=== PATIENT | male | born 1975 | race Caucasian/White ===

== ENCOUNTER 2024-01-22 17:10 | Inpatient (IN) | payer OTHER, SELFPAY ==
[2024-01-22 14:35] VITALS: BP 129/91
--- NOTE | 2024-01-22 15:08 | ED.GENMED ---
History of Present Illness
General
Chief Complaint: Abdominal Pain
Source: patient
Exam Limitations: none
Time Seen by Provider: 01/22/24 14:49
History of Present Illness
History of Present Illness:
48-year-old male who presents with left lower quad abdominal pain began 2 days ago. Patient has history of diverticulitis. [place] He starts to have pain when he walks. States he is lost his
appetite a little bit but no vomiting. No melena. No medic easy. Feels just like. Reticulitis flare but worse than last time
Past History
Past History
ED Past Medical History: Asthma and Other (Diverticulitis)
ED Past Surgical History: Tonsilectomy
Phy Exam
Physical Exam
Physical Exam:
CONSTITUTIONAL Patient alert and oriented to person, place and time. Well-appearing. Vital signs reviewed.
HEAD atraumatic, normocephalic.
EYES eyelids normal to inspection, Pupils equally round and reactive to light, Extraocular muscles intact, Conjunctiva normal, Sclera normal.
NECK normal range of motion, Trachea midline, no jugular venous distention.
RESPIRATORY CHEST No respiratory distress noted, Chest expansion equal, Bilateral breath sounds clear.
CARDIOVASCULAR regular rate and rhythm, Heart sounds normal.
ABDOMEN moderate to severe left lower quadrant tenderness, rebound noted, mild distention.
BACK normal inspection, no obvious deformities
UPPER EXTREMITY range of motion normal, Motor strength normal, no cyanosis, no edema.
LOWER EXTREMITY range of motion normal, Motor strength normal, no cyanosis, no edema.
NEURO Speech normal, No focal motor deficits, Mather coma scale 15, Memory normal, Cranial Nerves intact to screening exam.
SKIN skin warm, dry, and normal in color.
PSYCHIATRIC patient oriented to person place and time, Normal affect.
Course
Orders/Labs/Results
Orders:
Orders
01/22/24 14:58
CT Abd/pelvis W Iv Cont Urgent
Comment: DOES NOT NEED TO WAIT FOR LABS
Reason For Exam: LLQ abd pain
0.9% Sodium Chloride 1000 ml [Nss] 1,000 ml IV BOLUS
Ketorolac [Toradol] 30 mg IV NOW STA
01/22/24 15:13
Complete Blood Count/With Diff Urgent
Comprehensive Metabolic Panel Urgent
01/22/24 16:27
Piperacillin/Tazo 3.375 Gram [Zosyn] 3.375 gram in 50 ml IV NOW
01/22/24 16:41
Morphine Sulfate 4 mg IV NOW STA
Ondansetron Injectable [Zofran] 4 mg IV NOW STA
Abnormal Lab Results
01/22/24
15:13
WBC 19.5 H 10^3/uL
(4.8-10.8)
MCH 31.3 H pg
(27.0-31.0)
Abs Immat Gran (auto) 0.1 H 10^3/uL
(0-0.05)
Absolute Neuts (auto) 16.1 H 10^3/uL
(1.4-6.5)
Absolute Monos (auto) 1.1 H 10^3/uL
(0.1-0.6)
Neutrophils % 82.5 H %
(42.2-75.2)
Lymphocytes % 9.5 L %
(20.5-51.1)
Glucose 120 H mg/dl
(70-99)
Total Bilirubin 3.1 H mg/dl
(0.2-1.3)
01/22/24 15:13
01/22/24 15:13
Vital Signs
Initial and Last Documented VS:
Initial Vital Signs
Temp Pulse Resp BP Pulse Ox
98.8 F 118 18 129/91 97
01/22/24 14:35 01/22/24 14:35 01/22/24 14:35 01/22/24 14:35 01/22/24 14:35
Last Documented Vital Signs
Temp Pulse Resp BP Pulse Ox
98.8 F 118 18 129/91 97
01/22/24 14:35 01/22/24 14:35 01/22/24 14:35 01/22/24 14:35 01/22/24 14:35
MDM/Problems Addressed
MDM/Problems Addressed:
Acute diverticulitis with microperforation
*Radiology
Radiology exam reviewed: radiology read reviewed
*Pulse Oximetry
Patient hypoxic: no
*Critical Care Note
Total Time (30-74mins, 75-104mins- exclusive of procedures): Not Applicable
Data Reviewed
Review of Other/Old Records Reveals: Radiology Studies
Source: patient
Patient Management
Discussion with other providers: Hospitalist
Escalation/DeEscalation of care consider admission/obs:
48-year-old male presents left lower quad abdominal pain. Noted to have rebound on exam and CT does show diverticulitis with microperforation. White count 19.5k. Treat with IV Zosyn and admit.
ED Attending Note
-
Portions of this chart may have been created with voice recognition software.� Occasional wrong word or��sound alike� substitutions may have occurred due to the inherent limitations of voice recognition software.
Discharge Plan
Departure
Patient Disposition: Admit
Date of Disposition: 01/22/24
Time of Disposition: 16:40
Admit to: Med/Surg
Presentation/result/management discussed w/ accepting MD/DO: Hospitalist
Discharge Problem:
Diverticulitis of sigmoid colon, Intestinal perforation
Prescriptions:
No Action
cetirizine [Zyrtec] 10 mg Tablet
10 mg PO HS
albuterol sulfate 90 mcg/actuation Hfa Aerosol Inhaler
2 puff INHALATION R Q4HPRN PRN (Reason: sob/wheezing)
Referrals:
Antonio Pierre MD [Family Provider] -
Interventions
Interventions:
*Risk Screen - Suicide Last Done: 01/22/24 14:35
*General Assessment Last Done: 01/22/24 14:35
*Neglect/Abuse Screening Last Done: 01/22/24 14:35
*ED COVID-19 Vaccine History Last Done: 01/22/24 14:35
ZO-Zwyaim-Ucpwapxzlw Assessment Last Done: 01/22/24 15:22
Discharge Date and Time
Print Language: MALAY
[2024-01-22] MEDS: TORADOL 30 MG IV (15:10)
[2024-01-22] MEDS: NSS 1000 IV ×2 (15:12→21:06)
[2024-01-22 15:21] LABS: % Basophils 0.3 % (0-2); % Eosinophils 1.4 % (0-6); % Immature Granulocytes 0.5 % (0-0.5); % Lymphocytes 9.5 % (20.5-51.1); % Monocytes 5.8 % (1.7-9.3); % Neutrophils 82.5 % (42.2-75.2); Absolute Basophils 0.1 10^3/uL (0-0.2); Absolute Eosinophils 0.3 10^3/uL (0-0.7); Absolute Immature Granulocytes 0.1 10^3/uL (0-0.05); Absolute Lymphocytes 1.9 10^3/uL (1.2-3.4); Absolute Monocytes 1.1 10^3/uL (0.1-0.6); Absolute Neutrophils 16.1 10^3/uL (1.4-6.5); Hematocrit 43.3 % (39.0-52.0); Hemoglobin 15.5 g/dL (13.0-18.0); Mean Corp Hgb Conc. 35.8 g/dL (33.0-37.0); Mean Corpuscular Hgb 31.3 pg (27.0-31.0); Mean Corpuscular Volume 87.5 fL (80.0-94.0); Mean Platelet Volume 8.9 fL (7.4-10.4); Nucleated Red Blood Cells % 0 % (-); Platelet Count 264 10^3/uL (130-400); Red Blood Cell Count 4.95 10^6/uL (4.70-6.10); Red Cell Dist. Width 11.7 % (11.5-14.5); White Blood Cell Count 19.5 10^3/uL (4.8-10.8)
[2024-01-22 15:43] LABS: ALT (SGPT) 28 U/L (0-50); AST (SGOT) 32 U/L (17-59); Albumin 4.4 g/dl (3.5-5.0); Alkaline Phosphatase 58 U/L (38-126); Blood Urea Nitrogen 13 mg/dl (9-20); Calcium 9.4 mg/dl (8.4-10.2); Carbon Dioxide 24 mmol/L (22-30); Chloride 99 mmol/L (98-107); Glucose 120 mg/dl (70-99); Potassium 4.5 mmol/L (3.5-5.1); Sodium 136 mmol/L (135-145); Total Bilirubin 3.1 mg/dl (0.2-1.3); Total Protein 7.1 g/dl (6.3-8.2); eGFR > 60.00
[2024-01-22] MEDS: ZOSYN 50 IV ×2 (16:52→21:06)
[2024-01-22] MEDS: ZOFRAN 4 MG IV (16:53)
[2024-01-22] MEDS: MORPHINE SULFATE 4 MG IV (16:54)
--- NOTE | 2024-01-22 17:04 | HPS.HSE ---
Family Physician
-
Family Physician: Antonio Pierre
Chief Complaint
-
andominal pain
History of Present Illness
48-year-old male past medical history of asthma, diverticulitis last year presenting with left lower quadrant abdominal pain starting 2 days ago. He has loss of appetite but no vomiting. He did have chills. Denies vomiting or diarrhea.
Drinks alcohol socially. Smoking.
Medical History
Past Medical History
Past Medical History: Reports Other (asthma, diverticulitis last year)
Past Surgical History: Reports Tonsilectomy
Social History
Tobacco: Non-smoker
Alcohol: Occasional
Drug: None
Family History
Family History: Not pertinent
Allergies / Home Medications
Allergies reflects when Allergies were last updated in [facility].
Home Medications with original date entered in [facility]
Allergy/Medication List:
Allergies
Allergy/AdvReac Type Severity Reaction Status Date / Time
No Known Allergies Allergy Verified 01/22/24 14:38
Home Medications
albuterol sulfate 90 mcg/actuation aerosol inhaler 2 puff inhalation R Q4HPRN PRN sob/wheezing 01/22/24
cetirizine 10 mg tablet (Zyrtec) 10 mg PO HS 01/22/24
Review of Systems
-
History Source: Patient
A 12 point ROS was completed and negative except as noted: Yes
Constitutional: Reports No Symptoms
EENT: Reports No Symptoms
Respiratory: Reports No Symptoms
Cardiac: Reports No Symptoms
Abdomen/GI: Reports See HPI
: Reports No Symptoms
Musculoskeletal: Reports No Symptoms
Skin: Reports No Symptoms
Neurological: Reports No Symptoms
Endocrine: Reports No Symptoms
Hematologic/Lymphatic: Reports No Symptoms
Psych: Reports No Symptoms
Physical Exam
Vital Signs
Vital Signs
Temp Pulse Resp BP Pulse Ox
98.8 F 118 18 129/91 97
01/22/24 14:35 01/22/24 14:35 01/22/24 14:35 01/22/24 14:35 01/22/24 14:35
Physical Exam
General: Well Developed, Well Nourished and No Apparent Distress
HEENT: NormoCephalic, Moist mucous membranes and Atraumatic
Respiratory: Clear
Cardiac: S1/S2 and Regular Rhythm; No Murmur or Rub
GI: Soft, Non Distended, Normal Bowel Sounds and Tender (rigid, hard, LLQ tenderness ); No Organomegaly
Rectal: Deferred by Provider
Musculoskeletal: No Clubbing, No Cyanosis and No Edema
Skin: No Rash
Neuro: Nonfocal/grossly intact
Laboratory Results
-
01/22/24 15:13
01/22/24 15:13
Laboratory Results
Total Bilirubin 3.1 mg/dl (0.2-1.3) H 01/22/24 15:13
AST 32 U/L (17-59) 01/22/24 15:13
ALT 28 U/L (0-50) 01/22/24 15:13
Alkaline Phosphatase 58 U/L (38-126) 01/22/24 15:13
Data Reviewed
-
Lab Data: Labs Reviewed by me
Old Records: Reviewed
Impression/Plan
-
IMPRESSION:
PLAN:
# Sepsis (leukocytosis, tachycardia) secondary to acute sigmoid diverticulitis with small microperforation
# History of diverticulitis
-N.p.o.
-IV fluids
-Zosyn
-Zofran, Dilaudid
-Colorectal surgery consult
Asthma
-Continue albuterol
Full code
DVT prophylaxis- heparin
NPO
[2024-01-22 17:24] VITALS: BP 133/91
[2024-01-22 20:09] VITALS: BP 117/86; BMI 31.8
--- NOTE | 2024-01-22 20:40 | PTCARENOTE ---
Pt arrived to room 434-02. Pt ambulated from stretcher to bed. Pt AAOx3, VSS. Pt c/o 12/09 abdominal pain. Pt oriented to room, call stanley placed within reach.
[2024-01-22] MEDS: HEPARIN SC (21:01)
[2024-01-22] MEDS: ZYRTEC PO (21:01)
[2024-01-22] MEDS: MORPHINE SULFATE 2 MG IV (21:07)
[2024-01-22] MEDS: TORADOL 10 MG IV (23:16)
[2024-01-22 23:22] VITALS: BP 123/75
[2024-01-23] MEDS: MORPHINE SULFATE 2 MG IV ×2 (01:31→05:55)
[2024-01-23] MEDS: ZOSYN 50 IV ×4 (03:49→21:44)
[2024-01-23 07:15] VITALS: BP 125/73
[2024-01-23 08:01] LABS: % Basophils 0.2 % (0-2); % Eosinophils 1.2 % (0-6); % Immature Granulocytes 0.4 % (0-0.5); % Lymphocytes 14.1 % (20.5-51.1); % Monocytes 6.7 % (1.7-9.3); % Neutrophils 77.4 % (42.2-75.2); Absolute Eosinophils 0.2 10^3/uL (0-0.7); Absolute Immature Granulocytes 0.1 10^3/uL (0-0.05); Absolute Lymphocytes 2.3 10^3/uL (1.2-3.4); Absolute Monocytes 1.1 10^3/uL (0.1-0.6); Absolute Neutrophils 12.6 10^3/uL (1.4-6.5); Hematocrit 37.4 % (39.0-52.0); Hemoglobin 13.5 g/dL (13.0-18.0); Mean Corp Hgb Conc. 36.1 g/dL (33.0-37.0); Mean Corpuscular Hgb 31.5 pg (27.0-31.0); Mean Corpuscular Volume 87.2 fL (80.0-94.0); Mean Platelet Volume 9.3 fL (7.4-10.4); Nucleated Red Blood Cells % 0 % (-); Platelet Count 225 10^3/uL (130-400); Red Blood Cell Count 4.29 10^6/uL (4.70-6.10); Red Cell Dist. Width 11.8 % (11.5-14.5); White Blood Cell Count 16.3 10^3/uL (4.8-10.8)
[2024-01-23] MEDS: TORADOL 10 MG IV (08:16)
[2024-01-23] MEDS: HEPARIN SC ×2 (08:16→19:29)
[2024-01-23 09:01] LABS: ALT (SGPT) 22 U/L (0-50); AST (SGOT) 19 U/L (17-59); Albumin 3.6 g/dl (3.5-5.0); Alkaline Phosphatase 55 U/L (38-126); Blood Urea Nitrogen 12 mg/dl (9-20); Calcium 8.4 mg/dl (8.4-10.2); Carbon Dioxide 20 mmol/L (22-30); Chloride 101 mmol/L (98-107); Estimated Creatinine Clearance 94 ml/min; Glucose 116 mg/dl (70-99); Sodium 136 mmol/L (135-145); Total Bilirubin 5.2 mg/dl (0.2-1.3); Total Protein 5.9 g/dl (6.3-8.2); eGFR > 60.00
[2024-01-23] MEDS: NSS 1000 IV ×2 (09:23→16:37)
[2024-01-23] MEDS: DILAUDID 0.25 MG IV ×3 (09:57→21:46)
--- NOTE | 2024-01-23 12:18 | CON.CRS ---
Consultation
-
Date/Time Consultation Requested: 01/22/2024 23:12
Date/Time Consultation Performed: 01/23/2024 09:30
Requesting Provider: Desirae Cerna MD
Performing Provider: Jean Weiss MD
Reason for Consultation: diverticulitis
Medical History
-
Chief Complaint: abdominal pain
History of Present Illness:
48-year-old male presents to the emergency department yesterday due to left lower quadrant pain that started 3 days ago. The patient states that it happened out of nowhere [place] He had 1 brief episode of nausea
associated with this. His bowel movements have been regular typically but since this started he has been constipated. He was in quite a bit of pain last night. The patient has had 2 prior attacks of diverticulitis 1 on 12/22/2019 which showed
uncomplicated sigmoid diverticulitis. The second attack was 09/03/2022 which showed bilateral acute sigmoid diverticulitis with no abscess. CT of the abdomen and pelvis performed yesterday shows acute sigmoid diverticulitis with suspicion for small
microperforation. No free air elsewhere in the abdomen. No pericolonic abscess. On arrival to the ER his WBC was 19.5 and is 16.3 today. He remains afebrile. His last colonoscopy was in [address] Romano which showed sigmoid diverticulosis
and 1 polyp in the sigmoid colon. The patient states he has never had abdominal surgery in the past. We have been consulted for further surgical opinion.
Past Medical History
Past Medical History: Asthma and Other (diverticulitis - 2 prior attacks)
Past Surgical History: Tonsilectomy
Social History
Tobacco: Non-Smoker
Alcohol: Occasional
Drug: None
Family History
Family History: Reviewed & Not Pertinent
Allergies / Home Medications
Allergy/AdvReac Type Severity Reaction Status Date / Time
No Known Allergies Allergy Verified 01/22/24 14:38
�Medication �Instructions �Recorded �Confirmed �Type
albuterol sulfate 90 mcg/actuation 2 puff inhalation R Q4HPRN PRN 01/22/24 01/22/24 History
aerosol inhaler sob/wheezing
cetirizine 10 mg tablet (Zyrtec) 10 mg PO HS 01/22/24 01/22/24 History
Review of Systems
-
History Source: Patient
All other systems: Negative unless noted
Abdomen/GI: Abdominal Pain and Nausea
A 10 point review of systems was completed, and was negative except as per HPI.
Physical Exam
Vital Signs
Temp 99.1 F 01/23/24 07:15
Pulse 92 01/23/24 07:15
Resp Rate 18 01/23/24 07:15
Blood pressure 125/73 01/23/24 07:15
SaO2 94 01/23/24 07:15
01/22/24 01/23/24 01/24/24
06:59 06:59 06:59
Actual Weight 94.914 kg
Body Mass Index (BMI) 31.8
Lab Results / Allergies
01/23/24 07:22
01/23/24 07:22
WBC 16.3 10^3/uL (4.8-10.8) H 01/23/24 07:22
Hgb 13.5 g/dL (13.0-18.0) 01/23/24 07:22
Hct 37.4 % (39.0-52.0) L 01/23/24 07:22
Plt Count 225 10^3/uL (130-400) 01/23/24 07:22
Abs Immat Gran (auto) 0.1 10^3/uL (0-0.05) H 01/23/24 07:22
Neutrophils % 77.4 % (42.2-75.2) H 01/23/24 07:22
Allergy/AdvReac Type Severity Reaction Status Date / Time
No Known Allergies Allergy Verified 01/22/24 14:38
Physical Exam
General: Well Developed, Well Nourished and No Apparent Distress
GI: Soft, Tender (LLQ -mild) and Distended (mild)
Skin: Warm and Dry
Neuro: AO x 3
Data Reviewed
-
CT Scan: Image Personally Visualized and interpreted, Report Reviewed by me and Discussed with Patient
Labs: Labs Reviewed by me, Discussed with Physician and Discussed with Patient
Old Records: Reviewed
Assessment / Plan
-
Assessment: 48-year-old male with 2 prior attacks of sigmoid diverticulitis presents to [place] ER with several days worth of abdominal pain and 1 instance of nausea and found to have uncomplicated sigmoid diverticulitis
Plan:
-No plans for emergent surgery at this time. He would benefit from an elective sigmoidectomy once this episode has passed. He will discuss this further in the office with Dr. Weiss as an outpatient.
-Continue with IV fluids and antibiotics.
-Okay to advance to clear liquids.
-Will follow.
--- NOTE | 2024-01-23 13:20 | W.PN.HOSP.TC ---
Today's Communication/Plan
-
Diet per surgery
IV fluid
Pain control
IV antibiotic
Assessment / Plan
Assessment / Plan
# Sepsis (leukocytosis, tachycardia) secondary to acute sigmoid diverticulitis with small microperforation
# History of diverticulitis
-Diet per surgery.
-IV fluids
-Zosyn
-Continue pain control. Antinausea meds as needed.
-Colorectal surgery consult
-Remains afebrile. WBC improving. Continue to trend CBC.
-Plan for outpatient surgery unless patient condition deteriorates then will require inpatient surgery.
Asthma
-Continue albuterol
Elevated bilirubin
AST ALT normal
Continue to trend for now
Seems chronically elevated
Full code
DVT prophylaxis- heparin
Anticipated Discharge: > 48 hours
Subjective/Interval History
-
Date of Service: January 23, 2024
remains with abd pain
Objective Data
-
Labs:
Laboratory Results
01/23/24
07:22
WBC 16.3 H
Hgb 13.5
Hct 37.4 L
Plt Count 225
Sodium 136
Potassium 4.0
Chloride 101
Carbon Dioxide 20 L
BUN 12
Creatinine 1.1
Glucose 116 H
Calcium 8.4
Total Bilirubin 5.2 H D
AST 19
ALT 22
Alkaline Phosphatase 55
Vital Signs:
Vital Signs
Temp Pulse Resp BP Pulse Ox
99.1 F 92 18 125/73 94
01/23/24 07:15 01/23/24 07:15 01/23/24 07:15 01/23/24 07:15 01/23/24 07:15
I&O
01/22/24 01/23/24 01/24/24
06:59 06:59 06:59
Intake Total 1340 / 1340
Balance 1340 / 1340
Physical Exam
-
General: Well Developed and No Apparent Distress
HEENT: Normocephalic, Atraumatic and Moist Mucous Membranes
Respiratory: Clear to Auscultation
Cardiac: Regular Rhythm and S1/S2; Negative Murmur, Rub or Gallop
GI: Soft, Nontender, Normal Bowel Sounds and Tender; Negative Organomegaly
Rectal: Deferred by Provider
Musculoskeletal: No Clubbing, No Cyanosis and No Edema
Skin: Negative Rash
Neuro: Awake, Alert, Oriented, AO x 3, No Motor Deficits and Nonfocal/Grossly Intact
Psych: Calm
Data Reviewed
-
Total Time Spent with Patient (in minutes): 56
[2024-01-23 15:46] VITALS: BP 108/64
--- NOTE | 2024-01-23 16:26 | CM ---
legal services manager reviewed patient's chart and met with patient and patient lives in an apartment, alone is independent with adl's and ambulation, patient drives, home when stable, no needs.
[facility]acy: [facility]
PCP: Dr. Pierre
Plan; Home when stable, no needs.
[2024-01-23] MEDS: ZYRTEC PO (21:33)
[2024-01-23] MEDS: TYLENOL 650 MG PO (22:37)
[2024-01-23 23:12] VITALS: BP 120/67
[2024-01-24] MEDS: ZOSYN 50 IV ×4 (05:08→21:09)
[2024-01-24] MEDS: NSS 1000 IV ×2 (05:09→16:08)
[2024-01-24] MEDS: MORPHINE SULFATE 2 MG IV ×2 (05:19→21:10)
[2024-01-24 07:10] VITALS: BP 119/83
[2024-01-24 08:18] LABS: % Basophils 0.2 % (0-2); % Eosinophils 1.5 % (0-6); % Immature Granulocytes 0.5 % (0-0.5); % Lymphocytes 14.9 % (20.5-51.1); % Monocytes 6.9 % (1.7-9.3); Absolute Eosinophils 0.2 10^3/uL (0-0.7); Absolute Immature Granulocytes 0.1 10^3/uL (0-0.05); Absolute Lymphocytes 2.1 10^3/uL (1.2-3.4); Absolute Neutrophils 10.8 10^3/uL (1.4-6.5); Hematocrit 35.8 % (39.0-52.0); Mean Corp Hgb Conc. 36.3 g/dL (33.0-37.0); Mean Corpuscular Hgb 31.9 pg (27.0-31.0); Mean Corpuscular Volume 87.7 fL (80.0-94.0); Mean Platelet Volume 9.2 fL (7.4-10.4); Nucleated Red Blood Cells % 0 % (-); Platelet Count 202 10^3/uL (130-400); Red Blood Cell Count 4.08 10^6/uL (4.70-6.10); Red Cell Dist. Width 11.8 % (11.5-14.5); White Blood Cell Count 14.2 10^3/uL (4.8-10.8)
[2024-01-24] MEDS: HEPARIN 5000 UNITS SC ×2 (09:06→21:09)
[2024-01-24 09:18] LABS: ALT (SGPT) 22 U/L (0-50); AST (SGOT) 21 U/L (17-59); Albumin 3.1 g/dl (3.5-5.0); Alkaline Phosphatase 69 U/L (38-126); Blood Urea Nitrogen 8 mg/dl (9-20); Calcium 8.1 mg/dl (8.4-10.2); Carbon Dioxide 24 mmol/L (22-30); Chloride 103 mmol/L (98-107); Estimated Creatinine Clearance 103 ml/min; Glucose 101 mg/dl (70-99); Sodium 140 mmol/L (135-145); Total Bilirubin 4.9 mg/dl (0.2-1.3); Total Protein 5.6 g/dl (6.3-8.2); eGFR > 60.00
--- NOTE | 2024-01-24 10:09 | W.PN.CRS1 ---
Today's Communication / Plan
-
remain on clears
Assessment/Plan
-
Assessment: 48-year-old male with 2 prior attacks of sigmoid diverticulitis presents to [place] ER with several days worth of abdominal pain and 1 instance of nausea and found to have uncomplicated sigmoid diverticulitis
Vitals: tmax 100.3. WBC 14.2 from 16.3.
Plan:
-No plans for emergent surgery at this time. He would benefit from an elective sigmoidectomy once this episode has passed. He will discuss this further in the office with Dr. Weiss as an outpatient.
-Continue with IV fluids and antibiotics.
-Given amount of pain, will keep on clears today.
-Will follow.
Subjective Data
Subjective Data
Date of Service: January 24, 2024
Patient states he has a significant amount of pain this morning. He states it is about the same as yesterday. It is localized to his left side. He has no nausea or vomiting. He is tolerating clears. He has not had any bowel movements since
admission.
Objective Data
-
Vital Signs
Temp Pulse Resp BP Pulse Ox
97.7 F 82 18 119/83 95
01/24/24 07:10 01/24/24 07:10 01/24/24 07:10 01/24/24 07:10 01/24/24 07:10
Intake & Output
01/23/24 01/24/24 01/25/24
06:59 06:59 06:59
Intake Total 1340 / 1340 650 / 650
Balance 1340 / 1340 650 / 650
Intake:
Oral fluids 240 / 240 600 / 600
IV fluids (Total) 1000 / 1000
IV piggybacks 100 / 100 50 / 50
Other:
Number of approximated MODERATE 3 3
amounts of urine
Lab Results
01/24/24 07:41
01/24/24 07:41
Physical Exam
-
General: No Acute Distress and AOx3
Abdomen: Soft, Distended (mild) and Tender (left lower quadrant)
Skin: Warm and Dry
--- NOTE | 2024-01-24 11:33 | W.PN.HOSP.TC ---
Today's Communication/Plan
-
clears
IVF
IV abx
trend abd exam
Assessment / Plan
Assessment / Plan
# Sepsis (leukocytosis, tachycardia) secondary to acute sigmoid diverticulitis with small microperforation
# History of diverticulitis
-Diet per surgery. Plan to continue clears
-IV fluids
-Zosyn
-Continue pain control. Antinausea meds as needed.
-Colorectal surgery consult
-Remains afebrile. WBC improving. Continue to trend CBC.
-Plan for outpatient surgery unless patient condition deteriorates then will require inpatient surgery.
Asthma
-Continue albuterol
Elevated bilirubin
AST ALT normal
Continue to trend for now
Seems chronically elevated
CT scan- gallbladder, bile ducts, pancreas, spleen, bilateral adrenal glands, and kidneys are unremarkable.
Full code
DVT prophylaxis- heparin
Anticipated Discharge: > 48 hours
Subjective/Interval History
-
Date of Service: January 24, 2024
states of persistent pain
passing flatulence
Objective Data
-
Labs:
Laboratory Results
01/24/24
07:41
WBC 14.2 H
Hgb 13.0
Hct 35.8 L
Plt Count 202
Sodium 140
Potassium 4.0
Chloride 103
Carbon Dioxide 24
BUN 8 L
Creatinine 1.0
Glucose 101 H
Calcium 8.1 L
Total Bilirubin 4.9 H
AST 21
ALT 22
Alkaline Phosphatase 69
Vital Signs:
Vital Signs
Temp Pulse Resp BP Pulse Ox
97.7 F 82 18 119/83 95
01/24/24 07:10 01/24/24 07:10 01/24/24 07:10 01/24/24 07:10 01/24/24 07:10
I&O
01/23/24 01/24/24 01/25/24
06:59 06:59 06:59
Intake Total 1340 / 1340 650 / 650
Balance 1340 / 1340 650 / 650
Physical Exam
-
General: Well Developed and No Apparent Distress
HEENT: Normocephalic, Atraumatic and Moist Mucous Membranes
Respiratory: Clear to Auscultation
Cardiac: Regular Rhythm and S1/S2; Negative Murmur, Rub or Gallop
GI: Soft, Nontender, Normal Bowel Sounds and Tender (LLQ ); Negative Organomegaly
Rectal: Deferred by Provider
Musculoskeletal: No Clubbing, No Cyanosis and No Edema
Skin: Negative Rash
Neuro: Awake, Alert, Oriented, AO x 3, No Motor Deficits and Nonfocal/Grossly Intact
Psych: Calm
--- NOTE | 2024-01-24 14:54 | CM ---
Home no needs.
Plan; Home no needs.
[2024-01-24 15:32] VITALS: BP 137/85
[2024-01-24] MEDS: DILAUDID 0.25 MG IV (16:12)
[2024-01-24] MEDS: ZYRTEC PO (22:48)
[2024-01-24 23:50] VITALS: BP 123/61
[2024-01-25] MEDS: DILAUDID 0.25 MG IV (02:15)
[2024-01-25] MEDS: ZOSYN 50 IV ×4 (04:10→21:57)
[2024-01-25] MEDS: NSS 1000 IV ×3 (04:10→15:59)
[2024-01-25 07:24] LABS: % Basophils 0.2 % (0-2); % Eosinophils 2.5 % (0-6); % Immature Granulocytes 0.4 % (0-0.5); % Lymphocytes 21.3 % (20.5-51.1); % Monocytes 6.3 % (1.7-9.3); % Neutrophils 69.3 % (42.2-75.2); Absolute Eosinophils 0.3 10^3/uL (0-0.7); Absolute Lymphocytes 2.4 10^3/uL (1.2-3.4); Absolute Monocytes 0.7 10^3/uL (0.1-0.6); Absolute Neutrophils 7.7 10^3/uL (1.4-6.5); Hematocrit 35.3 % (39.0-52.0); Hemoglobin 12.4 g/dL (13.0-18.0); Mean Corp Hgb Conc. 35.1 g/dL (33.0-37.0); Mean Corpuscular Hgb 31.2 pg (27.0-31.0); Mean Corpuscular Volume 88.9 fL (80.0-94.0); Mean Platelet Volume 9.5 fL (7.4-10.4); Nucleated Red Blood Cells % 0 % (-); Platelet Count 220 10^3/uL (130-400); Red Blood Cell Count 3.97 10^6/uL (4.70-6.10); Red Cell Dist. Width 11.7 % (11.5-14.5); White Blood Cell Count 11.2 10^3/uL (4.8-10.8)
[2024-01-25 07:46] LABS: ALT (SGPT) 20 U/L (0-50); AST (SGOT) 23 U/L (17-59); Albumin 3.1 g/dl (3.5-5.0); Alkaline Phosphatase 66 U/L (38-126); Blood Urea Nitrogen 6 mg/dl (9-20); Calcium 8.2 mg/dl (8.4-10.2); Carbon Dioxide 25 mmol/L (22-30); Chloride 102 mmol/L (98-107); Estimated Creatinine Clearance 94 ml/min; Glucose 95 mg/dl (70-99); Sodium 139 mmol/L (135-145); Total Bilirubin 3.3 mg/dl (0.2-1.3); Total Protein 5.6 g/dl (6.3-8.2); eGFR > 60.00
[2024-01-25 08:05] VITALS: BP 148/97
[2024-01-25] MEDS: HEPARIN SC ×2 (09:00→19:40)
[2024-01-25] MEDS: OMNIPAQUE 100 ML PO (10:07)
[2024-01-25] MEDS: MORPHINE SULFATE 2 MG IV (10:08)
[2024-01-25 10:43] VITALS: BMI 31.8
--- NOTE | 2024-01-25 12:08 | CM ---
Home no needs when stable.
Plan; Home when stable.
--- NOTE | 2024-01-25 12:33 | W.PN.CRS1 ---
Today's Communication / Plan
-
CT abdomen pelvis
Assessment/Plan
-
Assessment: 48-year-old male with 2 prior attacks of sigmoid diverticulitis presents to [place] ER with several days worth of abdominal pain and 1 instance of nausea and found to have uncomplicated sigmoid diverticulitis
Vitals: Afebrile over 24 hours, WBC 11.2
Plan:
-Continue with IV fluids and antibiotics.
-Given amount of pain, will order a CT of the abdomen and pelvis
-Plans to follow once CT performed.
Subjective Data
Subjective Data
Date of Service: January 25, 2024
Patient states his pain is the same if not a little bit worse than yesterday. He had a very rough night and was unable to sleep due to the pain. He denies nausea or vomiting. He has not had any bowel movement since admission. He does have flatus.
Objective Data
-
Vital Signs
Temp Pulse Resp BP Pulse Ox
98.1 F 85 18 148/97 97
01/25/24 08:05 01/25/24 08:05 01/25/24 08:05 01/25/24 08:05 01/25/24 08:05
Intake & Output
01/24/24 01/25/24 01/26/24
06:59 06:59 06:59
Intake Total 650 / 650 1440 / 1440
Balance 650 / 650 1440 / 1440
Intake:
Oral fluids 600 / 600 1440 / 1440
IV piggybacks 50 / 50
Other:
Number of approximated MODERATE 3 3
amounts of urine
Lab Results
01/25/24 06:15
01/25/24 06:15
Physical Exam
-
General: No Acute Distress and AOx3
Abdomen: Soft, Distended (Mild) and Tender (Left lower quadrant-moderate)
Skin: Warm and Dry
--- NOTE | 2024-01-25 12:43 | W.PN.HOSP.TC ---
Today's Communication/Plan
-
IV abx
Restart IVF
CRS recs
repeat CT pending
Assessment / Plan
Assessment / Plan
# Sepsis (leukocytosis, tachycardia) secondary to acute sigmoid diverticulitis with small microperforation
# History of diverticulitis
-Diet per surgery. Plan to continue clears
-IV fluids
-Zosyn
-Continue pain control. Antinausea meds as needed.
-Colorectal surgery consult
-Remains afebrile. WBC improving. Continue to trend CBC.
-with worsening abd pain-Plan for repeat CT abd/pelvis ordered. may need downgrade diet. Start IVF as will receive repeat contrast.
-Plan for outpatient surgery unless patient condition deteriorates then will require inpatient surgery.
Asthma
-Continue albuterol
Elevated bilirubin
AST ALT normal
Continue to trend for now
Seems chronically elevated
CT scan- gallbladder, bile ducts, pancreas, spleen, bilateral adrenal glands, and kidneys are unremarkable.
Full code
DVT prophylaxis- heparin
Anticipated Discharge: > 48 hours
Subjective/Interval History
-
Date of Service: January 25, 2024
states of persistent pain without much improvement
had small bm earlier
Objective Data
-
Labs:
Laboratory Results
01/25/24
06:15
WBC 11.2 H
Hgb 12.4 L
Hct 35.3 L
Plt Count 220
Sodium 139
Potassium 4.0
Chloride 102
Carbon Dioxide 25
BUN 6 L
Creatinine 1.1
Glucose 95
Calcium 8.2 L
Total Bilirubin 3.3 H
AST 23
ALT 20
Alkaline Phosphatase 66
Vital Signs:
Vital Signs
Temp Pulse Resp BP Pulse Ox
98.1 F 85 18 148/97 99
01/25/24 08:05 01/25/24 08:05 01/25/24 08:05 01/25/24 08:05 01/25/24 09:00
I&O
01/24/24 01/25/24 01/26/24
06:59 06:59 06:59
Intake Total 650 / 650 1440 / 1440
Balance 650 / 650 1440 / 1440
Physical Exam
-
General: Well Developed and No Apparent Distress
HEENT: Normocephalic, Atraumatic and Moist Mucous Membranes
Respiratory: Clear to Auscultation
Cardiac: Regular Rhythm and S1/S2; Negative Murmur, Rub or Gallop
GI: Soft, Nontender, Normal Bowel Sounds and Tender (LLQ ); Negative Organomegaly
Rectal: Deferred by Provider
Musculoskeletal: No Clubbing, No Cyanosis and No Edema
Skin: Negative Rash
Neuro: Awake, Alert, Oriented, AO x 3, No Motor Deficits and Nonfocal/Grossly Intact
Psych: Calm
Data Reviewed
-
Total Time Spent with Patient (in minutes): 56
[2024-01-25 15:10] VITALS: BP 142/97
--- NOTE | 2024-01-25 15:19 | W.PN.UPDATE ---
Update Note
Progress Note Update
CT A/P was examined by Dr. Medley. Shows 'Slight interval increase in perisigmoid edema/nonloculated fluid since 01/22/2024. There is no intramural abscess or extraluminal focal fluid collection. Solitary gas locule adjacent to the sigmoid colon is
again seen, unchanged from prior, and suspicious for small focal perforation. There is no overt pneumoperitoneum or new extraluminal gas. No new inflammation.' Dr. Medley spoke with patient. Depending on exam/wbc tomorrow morning, will decide on OR
in the AM. Remain NPO for now. Continue IV antibiotics.
[2024-01-25] MEDS: ZYRTEC PO (21:53)
[2024-01-25 23:27] VITALS: BP 126/76
[2024-01-26] MEDS: NSS 1000 IV ×2 (04:11→16:30)
[2024-01-26] MEDS: ZOSYN 50 IV ×4 (04:11→21:39)
[2024-01-26] MEDS: HEPARIN SC ×2 (07:12→20:09)
[2024-01-26 07:18] LABS: % Basophils 0.5 % (0-2); % Eosinophils 4.5 % (0-6); % Immature Granulocytes 0.4 % (0-0.5); % Lymphocytes 28.4 % (20.5-51.1); % Neutrophils 59.2 % (42.2-75.2); Absolute Eosinophils 0.3 10^3/uL (0-0.7); Absolute Lymphocytes 2.1 10^3/uL (1.2-3.4); Absolute Monocytes 0.5 10^3/uL (0.1-0.6); Absolute Neutrophils 4.3 10^3/uL (1.4-6.5); Hematocrit 34.4 % (39.0-52.0); Hemoglobin 12.3 g/dL (13.0-18.0); Mean Corp Hgb Conc. 35.8 g/dL (33.0-37.0); Mean Corpuscular Hgb 30.5 pg (27.0-31.0); Mean Corpuscular Volume 85.4 fL (80.0-94.0); Mean Platelet Volume 9.2 fL (7.4-10.4); Nucleated Red Blood Cells % 0 % (-); Platelet Count 278 10^3/uL (130-400); Red Blood Cell Count 4.03 10^6/uL (4.70-6.10); Red Cell Dist. Width 11.8 % (11.5-14.5); White Blood Cell Count 7.3 10^3/uL (4.8-10.8)
[2024-01-26 08:16] LABS: ALT (SGPT) 19 U/L (0-50); AST (SGOT) 20 U/L (17-59); Albumin 3.3 g/dl (3.5-5.0); Alkaline Phosphatase 67 U/L (38-126); Blood Urea Nitrogen 4 mg/dl (9-20); Calcium 8.4 mg/dl (8.4-10.2); Carbon Dioxide 27 mmol/L (22-30); Chloride 103 mmol/L (98-107); Estimated Creatinine Clearance 103 ml/min; Glucose 103 mg/dl (70-99); Potassium 3.8 mmol/L (3.5-5.1); Sodium 141 mmol/L (135-145); Total Bilirubin 2.1 mg/dl (0.2-1.3); Total Protein 5.9 g/dl (6.3-8.2); eGFR > 60.00
[2024-01-26 08:21] VITALS: BP 130/84
--- NOTE | 2024-01-26 09:38 | CM ---
Patient seen at bedside. Patient states he is for discharge tomorrow. CM will continue to follow for discharge planning needs.
Plan; home with no needs anticpated
--- NOTE | 2024-01-26 10:15 | W.PN.CRS1 ---
Today's Communication / Plan
-
cancel OR
full liquids
Assessment/Plan
-
Assessment: 48-year-old male with 2 prior attacks of sigmoid diverticulitis presents to [place] ER with several days worth of abdominal pain and 1 instance of nausea and found to have uncomplicated sigmoid diverticulitis
Vitals: Afebrile over 24 hours, WBC 7.3
Plan:
- Continue with IV fluids and antibiotics.
- Given clinical improvement, will cancel OR today
- Advance diet to full liquids
- OOB as tolerated
- Will follow
Subjective Data
Subjective Data
Date of Service: January 26, 2024
Patient states he 'turned a corner' last night. He no longer has nausea or vomiting. He denies pain. He has been walking around the unit. He is hungry. He hasn't had a BM but has had a lot of flatus.
Objective Data
-
Vital Signs
Temp Pulse Resp BP Pulse Ox
97.8 F 72 16 130/84 97
01/26/24 08:21 01/26/24 08:21 01/26/24 08:21 01/26/24 08:21 01/26/24 08:21
Intake & Output
01/25/24 01/26/24 01/27/24
06:59 06:59 06:59
Intake Total 1440 / 1440 480 / 480
Balance 1440 / 1440 480 / 480
Intake:
Oral fluids 1440 / 1440 480 / 480
Other:
Number of approximated MODERATE 3 1
amounts of urine
Lab Results
01/26/24 06:38
01/26/24 06:38
Physical Exam
-
General: No Acute Distress and AOx3
Abdomen: Soft, Non Distended and Tender (mild LLQ)
Wound: Dressing in Place
--- NOTE | 2024-01-26 10:35 | W.PN.HOSP.TC ---
Today's Communication/Plan
-
IV zosyn
diet advance
Assessment / Plan
Assessment / Plan
# Sepsis (leukocytosis, tachycardia) secondary to acute sigmoid diverticulitis with small microperforation
# History of diverticulitis
-Zosyn
-Continue pain control. Antinausea meds as needed.
-Colorectal surgery consult
-Remains afebrile. Leukocytosis resolved.
-Repeat CT abd/pelvis with Slight interval increase in perisigmoid edema/nonloculated fluid since 01/22/2024. There is no intramural abscess or extraluminal focal fluid collection. Solitary gas locule adjacent to the sigmoid colon is again seen,
unchanged from prior, and suspicious for small focal perforation. There is no overt pneumoperitoneum or new extraluminal gas. No new inflammation.
-Plan to start on Fulls and advance further if tolerates.
-Plan for outpatient surgery unless patient condition deteriorates then will require inpatient surgery.
Asthma
-Continue albuterol
Elevated bilirubin
AST ALT normal
Continue to trend for now
Seems chronically elevated
CT scan- gallbladder, bile ducts, pancreas, spleen, bilateral adrenal glands, and kidneys are unremarkable.
Full code
DVT prophylaxis- heparin
Anticipated Discharge: Within 24 hours
Subjective/Interval History
-
Date of Service: January 26, 2024
feeling alot better-improved in abd pain
Objective Data
-
Labs:
Laboratory Results
01/26/24
06:38
WBC 7.3
Hgb 12.3 L
Hct 34.4 L
Plt Count 278 D
Sodium 141
Potassium 3.8
Chloride 103
Carbon Dioxide 27
BUN 4 L
Creatinine 1.0
Glucose 103 H
Calcium 8.4
Total Bilirubin 2.1 H
AST 20
ALT 19
Alkaline Phosphatase 67
Vital Signs:
Vital Signs
Temp Pulse Resp BP Pulse Ox
97.8 F 72 16 130/84 97
01/26/24 08:21 01/26/24 08:21 01/26/24 08:21 01/26/24 08:21 01/26/24 08:21
I&O
01/25/24 01/26/24 01/27/24
06:59 06:59 06:59
Intake Total 1440 / 1440 480 / 480
Balance 1440 / 1440 480 / 480
Physical Exam
-
General: Well Developed and No Apparent Distress
HEENT: Normocephalic, Atraumatic and Moist Mucous Membranes
Respiratory: Clear to Auscultation
Cardiac: Regular Rhythm and S1/S2; Negative Murmur, Rub or Gallop
GI: Soft, Nontender, Normal Bowel Sounds and Tender (LLQ -improved); Negative Organomegaly
Rectal: Deferred by Provider
Musculoskeletal: No Clubbing, No Cyanosis and No Edema
Skin: Negative Rash
Neuro: Awake, Alert, Oriented, AO x 3, No Motor Deficits and Nonfocal/Grossly Intact
Psych: Calm
[2024-01-26 15:45] VITALS: BP 134/95
[2024-01-26] MEDS: TYLENOL 650 MG PO (16:35)
[2024-01-26] MEDS: ZYRTEC 10 MG PO (21:39)
[2024-01-26 23:31] VITALS: BP 117/74
[2024-01-27] MEDS: ZOSYN 50 IV ×2 (03:31→10:34)
[2024-01-27] MEDS: HEPARIN SC (07:10)
[2024-01-27 07:53] LABS: % Basophils 0.5 % (0-2); % Eosinophils 4.2 % (0-6); % Immature Granulocytes 0.7 % (0-0.5); % Neutrophils 56.6 % (42.2-75.2); Absolute Eosinophils 0.3 10^3/uL (0-0.7); Absolute Lymphocytes 1.9 10^3/uL (1.2-3.4); Absolute Monocytes 0.4 10^3/uL (0.1-0.6); Absolute Neutrophils 3.5 10^3/uL (1.4-6.5); Hematocrit 36.8 % (39.0-52.0); Hemoglobin 12.7 g/dL (13.0-18.0); Mean Corp Hgb Conc. 34.5 g/dL (33.0-37.0); Mean Corpuscular Hgb 29.8 pg (27.0-31.0); Mean Corpuscular Volume 86.4 fL (80.0-94.0); Mean Platelet Volume 8.9 fL (7.4-10.4); Nucleated Red Blood Cells % 0 % (-); Platelet Count 286 10^3/uL (130-400); Red Blood Cell Count 4.26 10^6/uL (4.70-6.10); Red Cell Dist. Width 11.9 % (11.5-14.5); White Blood Cell Count 6.1 10^3/uL (4.8-10.8)
[2024-01-27 08:05] VITALS: BP 114/72
[2024-01-27 08:34] LABS: ALT (SGPT) 21 U/L (0-50); AST (SGOT) 24 U/L (17-59); Albumin 3.4 g/dl (3.5-5.0); Alkaline Phosphatase 63 U/L (38-126); Blood Urea Nitrogen 4 mg/dl (9-20); Calcium 8.5 mg/dl (8.4-10.2); Carbon Dioxide 23 mmol/L (22-30); Chloride 103 mmol/L (98-107); Estimated Creatinine Clearance 103 ml/min; Glucose 106 mg/dl (70-99); Potassium 3.9 mmol/L (3.5-5.1); Sodium 141 mmol/L (135-145); Total Bilirubin 1.5 mg/dl (0.2-1.3); eGFR > 60.00
--- NOTE | 2024-01-27 10:00 | W.PN.CRS1 ---
Today's Communication / Plan
-
low residue
Assessment/Plan
-
Assessment: 48-year-old male with 2 prior attacks of sigmoid diverticulitis presents to [facility] with several days worth of abdominal pain and 1 instance of nausea and found to have uncomplicated sigmoid diverticulitis
Vitals: Afebrile over 24 hours, WBC 7.3
Plan:
- Continue with antibiotics.
- No plans for OR, may need a resection as an outpatient once this current flare has resolved. Will discuss as an outpatient with Dr. Weiss.
- Advance diet to low residue
- OOB as tolerated
- Okay for d/c from our standpoint later today if tolerating low residue. Will need course of antibiotics. Follow up with Dr. Weiss in two weeks. Low residue diet as an outpatient.
Subjective Data
Subjective Data
Date of Service: January 27, 2024
Patient states he feels a lot better. He hardly has abdominal pain. He denies nausea or vomiting. He is very hungry.
Objective Data
-
Vital Signs
Temp Pulse Resp BP Pulse Ox
97.6 F 62 18 114/72 96
01/27/24 08:05 01/27/24 08:05 01/27/24 08:05 01/27/24 08:05 01/27/24 08:05
Intake & Output
01/26/24 01/27/24 01/28/24
06:59 06:59 06:59
Intake Total 480 / 480 480 / 480
Balance 480 / 480 480 / 480
Intake:
Oral fluids 480 / 480 480 / 480
Other:
Number of approximated MODERATE 1 1
amounts of urine
Lab Results
01/27/24 07:12
01/27/24 07:12
Physical Exam
-
General: No Acute Distress and AOx3
Abdomen: Soft, Non Distended and Tender (mild LLQ)
Skin: Warm and Dry
--- NOTE | 2024-01-27 10:58 | W.PN.HOSP.TC ---
Today's Communication/Plan
-
advanced to LR
DC home if tolerate diet
po abx on dc
OP CRS f/u
Assessment / Plan
Assessment / Plan
# Sepsis (leukocytosis, tachycardia) secondary to acute sigmoid diverticulitis with small microperforation
# History of diverticulitis
-Zosyn and switch to po Augmentin on discharge
-Continue pain control. Antinausea meds as needed.
-Colorectal surgery consulted
-Remains afebrile. Leukocytosis resolved.
-Repeat CT abd/pelvis with Slight interval increase in perisigmoid edema/nonloculated fluid since 01/22/2024. There is no intramural abscess or extraluminal focal fluid collection. Solitary gas locule adjacent to the sigmoid colon is again seen,
unchanged from prior, and suspicious for small focal perforation. There is no overt pneumoperitoneum or new extraluminal gas. No new inflammation.
-Diet advanced to LR
-Plan for outpatient surgery
Asthma
-Continue albuterol
Elevated bilirubin
AST ALT normal
Continue to trend for now
Seems chronically elevated
CT scan- gallbladder, bile ducts, pancreas, spleen, bilateral adrenal glands, and kidneys are unremarkable.
Recommend Op GI f/u
Full code
DVT prophylaxis- heparin
More than 30 minutes spent in discharge including
Final examination of the patient
Summarizing hospital stay
Instructions for continuing care to all relevant caregivers
Preparation of discharge records, prescriptions, and referral forms
Total time spent (in minutes): 52
Anticipated Discharge: Today
Subjective/Interval History
-
Date of Service: January 27, 2024
feeling alot better
no severe abd pain
afebrile
tolerating liquids
no nausea or vomiting
Objective Data
-
Labs:
Laboratory Results
01/27/24
07:12
WBC 6.1
Hgb 12.7 L
Hct 36.8 L
Plt Count 286
Sodium 141
Potassium 3.9
Chloride 103
Carbon Dioxide 23
BUN 4 L
Creatinine 1.0
Glucose 106 H
Calcium 8.5
Total Bilirubin 1.5 H
AST 24
ALT 21
Alkaline Phosphatase 63
Vital Signs:
Vital Signs
Temp Pulse Resp BP Pulse Ox
97.6 F 62 18 114/72 96
01/27/24 08:05 01/27/24 08:05 01/27/24 08:05 01/27/24 08:05 01/27/24 08:05
I&O
01/26/24 01/27/24 01/28/24
06:59 06:59 06:59
Intake Total 480 / 480 480 / 480
Balance 480 / 480 480 / 480
--- NOTE | 2024-01-27 11:05 | W.DCSUMMARY ---
Discharge Summary
Discharge Data
Date of Admission: 01/22/24
Date of Discharge: 01/27/24
-
Pending Results: No
Hospital Course
48-year-old male past medical history of chronic elevated bilirubin, history of diverticulitis who is present with abdominal pain. Patient underwent CT abdomen pelvis which showed sigmoid diverticulitis acute with small microperforation. Patient
was kept NPO. Patient was on IV fluid resuscitation. Patient was started on broad-spectrum antibiotic with Zosyn. Colorectal surgery was consulted. Pain control was started. Patient leukocytosis started to downtrend. Patient with persistent
abdominal pain and repeat CT abdomen pelvis was ordered. Repeat CT abd/pelvis with Slight interval increase in perisigmoid edema/nonloculated fluid since 01/22/2024. There is no intramural abscess or extraluminal focal fluid collection. Solitary gas
locule adjacent to the sigmoid colon is again seen, unchanged from prior, and suspicious for small focal perforation. There is no overt pneumoperitoneum or new extraluminal gas. No new inflammation. Patient diet was initially downgraded to NPO.
After repeat CAT scan patient with significant improvement abdominal pain. Diet was restarted. Patient was starting liquids and was advanced to low residue. Patient tolerated low residue diet. Patient will follow-up with colorectal surgery as
outpatient.
Discharge Plan
-
Patient Disposition: Home (Routine Discharge)
Discharge Diagnosis/Procedures: Sepsis due to to acute sigmoid diverticulitis with small micro perforation
Condition: Fair
Diet: Low Residue
Activity: No restrictions
Driving Restrictions: As prior to admission
Instructions: Low Fiber Diet
Referrals:
Chalo Weiss MD [Active] - in two weeks (call to make appointment)
Antonio [facility] MD [Family Provider] - in less than 1 week
Dimitrios Vivar DO [Active] - None (Chronic elevated bilirubin level)
Prescriptions:
New
amoxicillin-pot clavulanate 875-125 mg tablet
1 tab PO TID 7 Days Qty: 21 0RF
Continued
cetirizine [Zyrtec] 10 mg Tablet
10 mg PO HS
albuterol sulfate 90 mcg/actuation Hfa Aerosol Inhaler
2 puff INHALATION R Q4HPRN PRN (Reason: sob/wheezing)
Discharge Orders:
Discharge Patient (As Directed); Ordered 01/27/24
Ordered By: Jairo Leija
Discharge Date and Time
Discharge Date/Time: 01/27/24 13:45
Print Language: PANAMANIAN
[2024-01-27] MEDS: ZOSYN IV (12:05)
[2024-01-27 12:12] VITALS: BP 118/75
--- NOTE | 2024-01-27 18:03 | CM ---
patient is stable for dc home with no needs.
== END 2024-01-27 13:45 | disposition home or self-care (01) | DRG 872 ==
LOC: 4 WEST ACU 17:10
PROVIDERS: ADMITTING PHYSICIAN Hospitalist; ATTENDING PHYSICIAN Hospitalist; CONSULT PHYSICIAN Surgery; EMERGENCY PHYSICIAN Emergency Medicine; FAMILY PHYSICIAN Internal Medicine Geriatric Medicine
DX: A41.9 Sepsis, unspecified organism (principal); K57.20 Diverticulitis of large intestine with perforation and abscess without bleeding; J45.998 Other asthma
CPT/HCPCS: 74177; 80053; 85025; 96361; 96365; 96375; 99285; Q9967

== ENCOUNTER 2024-05-04 10:56 | Inpatient (IN) | payer OTHER, SELFPAY ==
[2024-05-01 08:59] LABS: Hematocrit 45.1 % (39.0-52.0); Hemoglobin 15.7 g/dL (13.0-18.0); Mean Corp Hgb Conc. 34.8 g/dL (33.0-37.0); Mean Corpuscular Hgb 30.4 pg (27.0-31.0); Mean Corpuscular Volume 87.4 fL (80.0-94.0); Mean Platelet Volume 9.2 fL (7.4-10.4); Platelet Count 270 10^3/uL (130-400); Red Blood Cell Count 5.16 10^6/uL (4.70-6.10); Red Cell Dist. Width 12.1 % (11.5-14.5); White Blood Cell Count 10.5 10^3/uL (4.8-10.8)
[2024-05-01 09:10] LABS: INR 0.93
[2024-05-01 09:11] LABS: APTT 30.2 Sec (23.4-35.0)
[2024-05-01 09:20] LABS: ALT (SGPT) 34 U/L (0-50); AST (SGOT) 26 U/L (17-59); Albumin 4.2 g/dl (3.5-5.0); Alkaline Phosphatase 63 U/L (38-126); Blood Urea Nitrogen 13 mg/dl (9-20); Calcium 9.2 mg/dl (8.4-10.2); Carbon Dioxide 30 mmol/L (22-30); Chloride 99 mmol/L (98-107); Glucose 132 mg/dl (70-99); Potassium 4.6 mmol/L (3.5-5.1); Sodium 139 mmol/L (135-145); eGFR > 60.00
[2024-05-01 10:43] LABS: Glycohemoglobin (HgbA1c) 5.8 % (4.0-5.6)
[2024-05-01 12:16] VITALS: BMI 30.9
[2024-05-04] VITALS (15 sets, daily range): BP systolic 126–140; BP diastolic 89–98; BMI 30.9
[2024-05-04] MEDS: ENTEREG 12 MG PO (11:31)
[2024-05-04] MEDS: TYLENOL 1000 MG PO (11:31)
[2024-05-04] MEDS: NORMOSOL-R/PLASMALYTE-A 1000 IV ×2 (11:42→16:30)
[2024-05-04] MEDS: HEPARIN 5000 UNITS SC (11:52)
--- NOTE | 2024-05-04 16:29 | W.IMMPOSTOP ---
Surgical Immed Post Op Note
-
Primary Surgeon: Jean Weiss MD
Diesel Maintenance Electrician: GUTIERREZ Marquez
Pre-op Diagnosis: Recurrent sigmoid diverticulitis
Post-op Diagnosis: Same
Procedure Performed: Robotic sigmoid colectomy with intracorporeal anastomosis
Anesthesia Type: GET
Specimen / Cultures: Sigmoid colon (suture is proximal)
Estimated Blood Loss: 20cc
Complications: None
Operative Findings: Chronic sigmoid diverticulitis
28mm EEA
Normal leak test
Patient's family updated.
[2024-05-04] MEDS: DILAUDID 0.25 MG IV ×2 (17:28→17:51)
[2024-05-04] MEDS: TORADOL 15 MG IV ×2 (17:32→23:05)
--- NOTE | 2024-05-04 18:43 | PTCARENOTE ---
Pt arrived to [facility] from PACU s/p robotic sigmoid resection. Pt AAox3, drowsy but arousal to verbal. Pt has 5 lap sites and one low transverse. One lap site with gauze and Tegaderm C/D/I. Abdi in place draining clear/yellow urine. Pt oriented to
call stanley and room, bed locked and in lowest position, call stanley within reach.
[2024-05-04] MEDS: TYLENOL 650 MG PO ×2 (20:03→23:05)
[2024-05-05] MEDS: NORMOSOL-R/PLASMALYTE-A 1000 IV ×2 (01:28→11:51)
[2024-05-05 03:00] VITALS: BP 133/89
[2024-05-05] MEDS: TYLENOL PO (04:52)
[2024-05-05] MEDS: TORADOL 15 MG IV ×2 (05:48→11:49)
[2024-05-05 06:00] VITALS: BMI 30.3
[2024-05-05 06:46] LABS: % Basophils 0.1 % (0-2); % Immature Granulocytes 0.7 % (0-0.5); % Lymphocytes 12.4 % (20.5-51.1); % Monocytes 4.9 % (1.7-9.3); % Neutrophils 81.9 % (42.2-75.2); Absolute Immature Granulocytes 0.1 10^3/uL (0-0.05); Absolute Monocytes 0.8 10^3/uL (0.1-0.6); Absolute Neutrophils 13.2 10^3/uL (1.4-6.5); Hematocrit 42.5 % (39.0-52.0); Hemoglobin 14.8 g/dL (13.0-18.0); Mean Corp Hgb Conc. 34.8 g/dL (33.0-37.0); Mean Corpuscular Hgb 30.3 pg (27.0-31.0); Mean Corpuscular Volume 87.1 fL (80.0-94.0); Nucleated Red Blood Cells % 0 % (-); Platelet Count 283 10^3/uL (130-400); Red Blood Cell Count 4.88 10^6/uL (4.70-6.10); Red Cell Dist. Width 12.1 % (11.5-14.5); White Blood Cell Count 16.1 10^3/uL (4.8-10.8)
[2024-05-05 07:07] VITALS: BP 117/76
[2024-05-05 07:16] LABS: Blood Urea Nitrogen 12 mg/dl (9-20); Calcium 8.1 mg/dl (8.4-10.2); Carbon Dioxide 24 mmol/L (22-30); Chloride 100 mmol/L (98-107); Estimated Creatinine Clearance 116 ml/min; Glucose 117 mg/dl (70-99); Potassium 4.5 mmol/L (3.5-5.1); Sodium 135 mmol/L (135-145); eGFR > 60.00
[2024-05-05] MEDS: ENTEREG 12 MG PO ×2 (08:14→22:15)
[2024-05-05] MEDS: ZYRTEC 10 MG PO (08:14)
[2024-05-05] MEDS: TYLENOL 650 MG PO ×4 (08:14→22:15)
[2024-05-05 10:58] VITALS: BP 118/90
--- NOTE | 2024-05-05 11:21 | W.PN.CRS1 ---
Today's Communication / Plan
-
D/c doll
FLD
Assessment/Plan
-
48 yo male with a history of recurrent sigmoid diverticulitis presenting for operative management. POD #1 robotic sigmoid colectomy
Afebrile, stable vital signs
Labs stable post op, some reactive leukocytosis present
Good UO, tolerating clears
Following expected post op course
--Full liquids as tolerated
--IVF until good PO tolerance
--D/C doll
--OOB/Ambulate/IS while awake
--Analgesics scheduled and prn
--Lovenox 40mg sq for VTE ppx
Subjective Data
Procedure
05/04/24 Robotic sigmoid colectomy with intracorporeal anastomosis
Subjective Data
Date of Service: May 05, 2024
Patient seen and examined at bedside with Dr. Medley. Denies n/v. Not much appetite. Pain well controlled.
Objective Data
-
Vital Signs
Temp Pulse Resp BP Pulse Ox
97.1 F 77 16 118/90 98
05/05/24 10:58 05/05/24 10:58 05/05/24 10:58 05/05/24 10:58 05/05/24 10:58
Intake & Output
05/04/24 05/05/24 05/06/24
06:59 06:59 06:59
Intake Total 1740 / 1740
Output Total 1900 / 1900 250 / 250
Balance -160 / -160 -250 / -250
Intake:
Oral fluids 240 / 240
IV fluids (Total) 1500 / 1500
Normosal 300 / 300
Output:
Urine, Doll 1900 / 1900 250 / 250
Lab Results
05/05/24 05:37
05/05/24 05:37
Physical Exam
-
General: No Acute Distress and AOx3
Abdomen: Soft, Non Distended and Tender (minimal to incisions)
Skin: Warm and Dry
Incision: Clear, Dry, Intact
[2024-05-05 15:13] VITALS: BP 130/86
[2024-05-05] MEDS: TORADOL IV (17:41)
[2024-05-05 23:44] VITALS: BP 116/75
[2024-05-06] MEDS: TYLENOL PO (00:16)
[2024-05-06] MEDS: TORADOL IV ×3 (00:17→13:02)
[2024-05-06] MEDS: NORMOSOL-R/PLASMALYTE-A IV (02:22)
[2024-05-06] MEDS: TYLENOL 650 MG PO ×3 (03:19→13:03)
[2024-05-06 05:16] LABS: % Basophils 0.4 % (0-2); % Eosinophils 1.3 % (0-6); % Immature Granulocytes 0.6 % (0-0.5); % Lymphocytes 36.4 % (20.5-51.1); % Monocytes 5.2 % (1.7-9.3); % Neutrophils 56.1 % (42.2-75.2); Absolute Eosinophils 0.1 10^3/uL (0-0.7); Absolute Immature Granulocytes 0.1 10^3/uL (0-0.05); Absolute Monocytes 0.6 10^3/uL (0.1-0.6); Absolute Neutrophils 6.1 10^3/uL (1.4-6.5); Mean Corpuscular Hgb 30.7 pg (27.0-31.0); Mean Corpuscular Volume 87.7 fL (80.0-94.0); Nucleated Red Blood Cells % 0 % (-); Platelet Count 235 10^3/uL (130-400); Red Blood Cell Count 4.56 10^6/uL (4.70-6.10); Red Cell Dist. Width 12.2 % (11.5-14.5); White Blood Cell Count 10.9 10^3/uL (4.8-10.8)
[2024-05-06 05:37] LABS: Blood Urea Nitrogen 9 mg/dl (9-20); Calcium 8.1 mg/dl (8.4-10.2); Carbon Dioxide 28 mmol/L (22-30); Chloride 101 mmol/L (98-107); Estimated Creatinine Clearance 116 ml/min; Glucose 112 mg/dl (70-99); Potassium 4.2 mmol/L (3.5-5.1); Sodium 137 mmol/L (135-145); eGFR > 60.00
[2024-05-06 06:00] VITALS: BMI 30.5
[2024-05-06 07:39] VITALS: BP 140/85
[2024-05-06] MEDS: ENTEREG 12 MG PO (08:52)
[2024-05-06] MEDS: ZYRTEC PO (08:55)
--- NOTE | 2024-05-06 11:47 | W.PN.CRS1 ---
Today's Communication / Plan
-
Dispo planning
Assessment/Plan
-
48 yo male with a history of recurrent sigmoid diverticulitis presenting for operative management. POD #2 robotic sigmoid colectomy
Afebrile, stable vital signs
Labs stable post op, reactive leukocytosis trended down
Following expected post op course
--Advance to LRD
--No further IVF
--OOB/Ambulate/IS while awake
--Analgesics scheduled and prn
--Lovenox 40mg sq for VTE ppx
Discharge later today once tolerating diet
Subjective Data
Procedure
05/04/24 Robotic sigmoid colectomy with intracorporeal anastomosis
Subjective Data
Date of Service: May 06, 2024
Patient seen and examined at bedside with Dr. Medley. Denies n/v. Tolerating dietary advances thus far. Passing flatus and had a BM. Voiding without difficulty. No pain at rest but sore when rising out of bed or out of a chair.
Objective Data
-
Vital Signs
Temp Pulse Resp BP Pulse Ox
97.5 F 69 12 140/85 96
05/06/24 07:39 05/06/24 07:39 05/06/24 07:39 05/06/24 07:39 05/06/24 08:00
Intake & Output
05/05/24 05/06/24 05/07/24
06:59 06:59 06:59
Intake Total 1740 / 1740 2340 / 2340
Output Total 1900 / 1900 950 / 950 1625 / 1625
Balance -160 / -160 1390 / 1390 -1625 / -1625
Intake:
Oral fluids 240 / 240 1140 / 1140
IV fluids (Total) 1500 / 1500 1200 / 1200
Normosal 300 / 300
Output:
Urine, Abdi 1900 / 1900 250 / 250
Urine, Voided 700 / 700 1625 / 1625
Lab Results
05/06/24 04:29
05/06/24 04:29
Physical Exam
-
General: No Acute Distress and AOx3
Abdomen: Soft, Non Distended and Tender (minimal to incisions)
Skin: Warm and Dry
Incision: Clear, Dry, Intact (glue intact)
--- NOTE | 2024-05-06 11:58 | CM ---
Met with pt at bedside
Pt reports he lives alone in an apartment; 10 steps to enter, FF set up
Independent, employed FT, drives
DME - none
SNF/HH - no past hx
Has ride at discharge
PCP - Rony Timmons
Pharm - [facility], [address]
Plan - anticipate home no needs
[2024-05-06 13:30] VITALS: BP 124/89
--- NOTE | 2024-05-06 13:35 | W.DCSUMMARY ---
Discharge Summary
Discharge Data
Date of Admission: 05/04/24
Date of Discharge: 05/06/24
-
Pending Results: No
Hospital Course
Mr Mccain is a 48 yo male with a history of recurrent diverticulitis who presented for operative management with robotic sigmoid colectomy. He tolerated the procedure well without complication. Diet was able to be advanced and well tolerated with
evidence of good bowel recovery. Perioperative doll was removed for a successful voiding trial. Pain was well managed off narcotics.
Discharge Plan
-
Patient Disposition: Home (Routine Discharge)
Discharge Diagnosis/Procedures: Robotic sigmoidectomy
Condition: Good
Diet: Low Fiber
Activity: No strenuous activity
Additional Activity: Do not lift over 10lbs (gallon of milk)
Driving Restrictions: No driving for 1 week
Bathing Restrictions: OK to Shower
Wound Care: Ok to shower and wash abdomen gently with soap and water. Do not scrub or pick the glue off. Do not apply ointments or creams to your incisions
Activity Restrictions/Additional Instructions:
Call your surgeon if you have worsening pain, nausea with vomiting or a fever >100.5
Referrals:
Chalo Weiss MD [Active] - in two to four weeks
Rony Timmons DO [Family Provider] -
Additional Discharge Medication Instructions: Take over the counter Tylenol and Ibuprofen for pain. Follow packaging direction for dosing.
Prescriptions:
Continued
cetirizine [Zyrtec] 10 mg Tablet
10 mg PO DAILY
albuterol sulfate 90 mcg/actuation Hfa Aerosol Inhaler
2 puff INHALATION R Q4HPRN PRN (Reason: sob/wheezing)
Discontinued
metronidazole 500 mg Tablet
500 mg PO .[id number]
Rx Instructions:
To be taken day before surgery
neomycin 500 mg Tablet
1,000 mg PO .[id number]
Rx Instructions:
To take day before surgery
Sutab 1.479-0.188- 0.225 gram Tablet
0 tab PO DIRECTED
Rx Instructions:
Bowel prep for surgery
Discharge Orders:
Discharge Patient (As Directed); Ordered 05/06/24
Ordered By: Shayla Ellis
Discharge Date and Time
Print Language: YORUBA
== END 2024-05-06 13:43 | disposition home or self-care (01) | DRG 331 ==
LOC: 2 SOUTH 10:56
PROVIDERS: Registered Nurse; ADMITTING PHYSICIAN Surgery; FAMILY PHYSICIAN Internal Medicine
PROC: 0DBN4ZZ Excision of Sigmoid Colon, Percutaneous Endoscopic Approach (ICD-10-PCS; 2024-05-04)
PROC: 8E0W4CZ Robotic Assisted Procedure of Trunk Region, Percutaneous Endoscopic Approach (ICD-10-PCS; 2024-05-04)
DX: K57.32 Diverticulitis of large intestine without perforation or abscess without bleeding (principal)
CPT/HCPCS: 88307; 36415; 80048; 80053; 83036; 85025; 85027; 85610; 85730; 86850; 86900; 86901; J1335